=== PATIENT | female | born 2000 | race Caucasian/White ===

== ENCOUNTER 2021-04-14 11:07 | Outpatient (CLI) | payer BC, SELFPAY ==
--- NOTE | 2021-04-14 | ECG_ITS ---
Measurements Intervals [place] Rate: 52 P: 27 MO: 138 QRS: 65 QRSD: 108 T: -16 QT: 438 QTc: 410 Interpretive Statements SINUS BRADYCARDIA INCOMPLETE RIGHT BUNDLE BRANCH BLOCK BORDERLINE ST-T WAVE ABNORMALITY- ANT/INF LEADS BASELINE ARTIFACT- I, II BORDERLINE ECG Electronically Signed On 04-14-2021 12:01:26 JET MAN by Naldo Hall D.O.
== END 2021-04-14 11:08 | disposition home or self-care (01) ==
PROVIDERS: PCP Emergency Medicine; Visit Provider Emergency Medicine
DX: U07.1 COVID-19 (principal); R00.1 Bradycardia, unspecified; I45.10 Unspecified right bundle-branch block
CPT/HCPCS: 93005